=== PATIENT | female | born 1950 | race Two or more races ===

== ENCOUNTER 2022-10-25 05:53 | Day surgery (SDC) | payer OTHER ==
[~2022-10-25] VITALS: Ht 157.5 cm; Wt 67.1 kg
[~2022-10-25 05:53] MED LIST: CRESTOR10 MG PO; ESCITALOPRAM PO; MIRTAZAPINE30 M1 PO; NORVASC10 MG PO; SYNTHROID50 MCG PO; XANAX XR0.5 MG PO
== END 2022-10-25 17:00 | disposition home or self-care (01) ==
LOC: CIR.AMB 05:53
PROVIDERS: ATTEND Student in an Organized Health Care Education/Training Program
DX: N95.0 Postmenopausal bleeding (principal); N84.1 Polyp of cervix uteri; Z88.1 Allergy status to other antibiotic agents; I10 Essential (primary) hypertension; E03.9 Hypothyroidism, unspecified; Z20.822 Contact with and (suspected) exposure to COVID-19